=== PATIENT | female | born 1940 | race Two or more races ===

== ENCOUNTER 2018-08-23 10:02 | Outpatient (CLI) | payer OTHER ==
[~2018-08-23] VITALS: Ht 160 cm; Wt 74.4 kg
[~2018-08-23 10:02] MED LIST: ENALAPRIL MALEA20 MG; FOSAMAX40 MG; PRILOSEC10 MG; SIMVASTATIN10 MG; SYNTHROID125 MCG; TENORMIN0.5 MG/ML
== END 2018-08-23 10:20 | disposition home or self-care (01) ==
LOC: OFIC 805 10:02
DX: R13.19 Other dysphagia (principal); K21.0 Gastro-esophageal reflux disease with esophagitis; R09.81 Nasal congestion

== ENCOUNTER 2022-05-09 11:32 | Emergency (ER) | payer OTHER ==
[~2022-05-09] VITALS: Ht 162.6 cm; Wt 68.9 kg
== END 2022-05-09 16:33 | disposition home or self-care (01) ==
LOC: ER 11:32
DX: B35.2 Tinea manuum (principal); B35.1 Tinea unguium

== ENCOUNTER 2023-06-17 09:18 | Outpatient (CLI) | payer OTHER | END 2023-06-17 09:22 | disposition home or self-care (01) | LOC: RAD 09:18 | PROVIDERS: ATTEND Internal Medicine Gastroenterology | DX: J32.9 Chronic sinusitis, unspecified (principal) ==

== ENCOUNTER 2023-07-05 07:22 | Outpatient (CLI) | payer OTHER | END 2023-07-05 07:27 | disposition home or self-care (01) | LOC: RX STUDY 07:22 | PROVIDERS: ATTEND Internal Medicine Gastroenterology | DX: R19.6 Halitosis (principal); K21.00 Gastro-esophageal reflux disease with esophagitis, without bleeding ==